=== PATIENT | female | born 1985 | race American Indian/Alaskan Native ===

== ENCOUNTER 2017-09-04 13:22 | Emergency (ER) | payer MEDICAID ==
[2017-09-04 17:53] VITALS: BP 99/58
[2017-09-04] MEDS ORDERED: PEPCID PO ONE (18:21)
[2017-09-04] MEDS ORDERED: DELTASONE PO ONE (18:21)
[2017-09-04] MEDS ORDERED: BENADRYL PO ONE (18:21)
[2017-09-04] MEDS ORDERED: ULTRAM PO ONE (18:21)
--- NOTE | 2017-09-04 18:28 | Emergency Department Report ---
Abscess Boil HPI - HPI Chief Complaint: Skin/Abscess/Foreign Body Stated Complaint: LEFT LEG PAIN,POSSIBLE SPIDER BITE Time Seen by Provider: 09/04/17 18:16 Duration: 3 Days Location: Lower Extremity History: Yes Pain, Yes Insect Bite (spider bite LLE 3 days ago ), No Fever, No Purulent Drainage, No Numbness, No Foreign Body, No Previous History Home Medications: Previous Rx's Medication Instructions Recorded Last Taken Type Famotidine [Pepcid] 20 mg PO BID #14 tablet 09/04/17 Unknown Rx Naproxen [Naprosyn TAB] 500 mg PO BID PRN #30 tablet 09/04/17 Unknown Rx diphenhydrAMINE [Benadryl CAP] 25 mg PO Q6HR PRN #30 capsule 09/04/17 Unknown Rx predniSONE [Deltasone] 40 mg PO QDAY #10 tab 09/04/17 Unknown Rx Allergies/Adverse Reactions: Allergies Allergy/AdvReac Type Severity Reaction Status Date / Time No Known Allergies Allergy Verified 09/04/17 13:42 ED Review of Systems ROS: Stated complaint: LEFT LEG PAIN,POSSIBLE SPIDER BITE Other details as noted in HPI Constitutional: denies: chills, fever Eyes: denies: eye pain, eye discharge, vision change ENT: denies: ear pain, throat pain Respiratory: denies: cough, shortness of breath, wheezing Cardiovascular: as per HPI Endocrine: no symptoms reported Gastrointestinal: denies: abdominal pain, nausea, diarrhea Genitourinary: denies: urgency, dysuria, discharge Musculoskeletal: denies: back pain, joint swelling, arthralgia Skin: other (infected spider bite LLE ) Neurological: denies: headache, weakness, paresthesias Psychiatric: denies: anxiety, depression Hematological/Lymphatic: denies: easy bleeding, easy bruising ED Past Medical Hx - Past Medical History Previous Medical History?: No - Surgical History Past Surgical History?: No - Social History Smoking Status: Current Every Day Smoker Substance Use Type: Marijuana - Medications Home Medications: Home Medications Medication Instructions Recorded Confirmed Last Taken Type Famotidine [Pepcid] 20 mg PO BID #14 tablet 09/04/17 Unknown Rx Naproxen [Naprosyn TAB] 500 mg PO BID PRN #30 tablet 09/04/17 Unknown Rx diphenhydrAMINE [Benadryl CAP] 25 mg PO Q6HR PRN #30 capsule 09/04/17 Unknown Rx predniSONE [Deltasone] 40 mg PO QDAY #10 tab 09/04/17 Unknown Rx ED Abscess Boil Physical Exam - Exam General: Vital signs noted. No distress. Alert and acting appropriately. Front/Back of Body, Lg (Color): 1 - spider/insect bite site with erythema, burning, itching, 3x4 cm Size: 3 cm Exam: Yes Tenderness, Yes Surrounding Cellulites/Erythema, Yes Heart Murmur, Yes Normal Neurologic Exam, Yes Normal Circulation, No Fluctuance, No Lymphangitis, No Crepitation ED Course Vital Signs 09/04/17 09/04/17 13:42 17:43 Temperature 98.3 F Pulse Rate 82 76 Respiratory 18 16 Rate Blood Pressure 105/55 99/58 O2 Sat by Pulse 100 100 Oximetry Critical care attestation.: If time is entered above; I have spent that time in minutes in the direct care of this critically ill patient, excluding procedure time. ED Medical Decision Making - Medical Decision Making pt is a 31 y/o aaf who present s/p spider bite 3 days ago to LLE advises she was seen at [facility] wtih bactrim po bid is taking same but state itching and burning continues with current rx regimen. There is no numbness no tingling no paresthesia no weakness no dizziness no n/v no sob no wheezing, pt denies fever no chills no n/v pt is a/o x 3 ambulatory gait steady no dizziness no sob no cp no nv , site with moderate eythema no hot to touch pruritis no drainage no fluctuance, plan: steroids, antihistamine, h2 block , continue bactrim as previously prescribed pt will follow up with pcp in 3 days. ED Disposition Clinical Impression: Infected insect bite of left leg Qualifiers: Encounter type: initial encounter Qualified Code(s): S80.862A - Insect bite ( nonvenomous), left lower leg, initial encounter; L08.9 - Local infection of the skin and subcutaneous tissue, unspecified; L08.9 - Local infection of the skin and subcutaneous tissue, unspecified; W57.XXXA - Bitten or stung by nonvenomous insect and other nonvenomous arthropods, initial encounter; W57.XXXA - Bitten or stung by nonvenomous insect and other nonvenomous arthropods, initial encounter Cellulitis Qualifiers: Site of cellulitis: extremity Site of cellulitis of extremity: lower extremity Laterality: left Qualified Code(s): L03.116 - Cellulitis of left lower limb Disposition: DC- TO HOME OR SELFCARE Is pt being admited?: No Does the pt Need Aspirin: No Condition: Stable Instructions: Insect Bite or Sting (ED), Cellulitis (ED) Prescriptions: diphenhydrAMINE [Benadryl CAP] 25 mg PO Q6HR PRN #30 capsule PRN Reason: Itching Famotidine [Pepcid] 20 mg PO BID #14 tablet Naproxen [Naprosyn TAB] 500 mg PO BID PRN #30 tablet PRN Reason: Pain predniSONE [Deltasone] 40 mg PO QDAY #10 tab Referrals: PRIMARY CARE, [Primary Care Provider] - 3-5 Days Forms: Work/School Release Form(ED) Time of Disposition: 18:32
== END 2017-09-04 18:54 | disposition home or self-care (01) ==
LOC: ED 13:22
DX: S80.862A Insect bite (nonvenomous), left lower leg, initial encounter (principal); L08.9 Local infection of the skin and subcutaneous tissue, unspecified; F17.200 Nicotine dependence, unspecified, uncomplicated; F12.10 Cannabis abuse, uncomplicated; L03.116 Cellulitis of left lower limb; W57.XXXA Bitten or stung by nonvenomous insect and other nonvenomous arthropods, initial encounter; Y93.9 Activity, unspecified; Y92.89 Other specified places as the place of occurrence of the external cause; Y99.8 Other external cause status
CPT/HCPCS: 99282; J7512; Q0163

== ENCOUNTER 2018-09-08 19:18 | Emergency (ER) | payer MEDICAID | END 2018-09-08 20:40 | disposition left against medical advice (07) | LOC: ED 19:18 | DX: R42 Dizziness and giddiness (principal); R53.1 Weakness; R20.2 Paresthesia of skin; Z53.21 Procedure and treatment not carried out due to patient leaving prior to being seen by health care provider ==